=== PATIENT | male | born 1965 | race Caucasian/White ===

== ENCOUNTER 2023-12-17 13:31 | Outpatient (AMB) | payer MEDICAID, SELFPAY ==
--- NOTE | 2023-12-17 13:49 | PD.GSCLVISIT ---
Vital Signs - [facility] 12/17/23 13:53 Height 1.96 m Height Method Stated Weight 113.937 kg Weight Measurement Method Standing Scale BMI 29.7 BP 166/116 H Blood Pressure Source Automatic Cuff Blood Pressure Location Right Upper Arm Position Sitting Respiration 19 Pulse 124 H Pulse Source Monitor Temp 96.1 F L Temp Source Temporal Artery Scan Pulse Oximetry (%) 96 Oxygen Delivery Method Room Air Med/Allergies Allergies & Medications Allergies Penicillins Allergy (Severe, Verified 12/17/23 13:54) Hives Medication Reconciliation cyclobenzaprine 5 mg tablet 5 mg PO TID PRN Pain (Scale Score 4-6) 12/06/23 [History Confirmed 12/17/23] risperidone 3 mg tablet 3 mg PO QDAY 12/06/23 [History Confirmed 12/17/23] simvastatin 80 mg tablet 80 mg PO QDAY 12/06/23 [History Confirmed 12/17/23] venlafaxine 150 mg tablet,extended release 24 hr 150 mg PO QDAY 12/06/23 [History Confirmed 12/17/23] MA Intake Visit Data Collection New Patient or Established: Established Patient (seen at [facility] within 3 years) Seen by Clinical Staff ONLY (RN/MA): No Reason for Visit:: COLONOSCOPY F/U Pain Present Currently: No Materials Management Manager Required: No PCP or OBGYN visit in last 3 months: Yes Hx Now: No Do You Feel Safe at Home: Yes Authorities Contacted: N/A Smoking Status Smoking Status: Current every day smoker Cessation Counseling Provided: ANGLEINA was advised that quitting smoking is the single most important factor to protect the health of themselves and their family. Discussed the benefits of quitting smoking with patient. Encouraged patient to quit smoking and provided Cessation assistance materials and resources. Tobacco Use: Cigarette Years smoked: 2 Are you interested in quitting?: No Would you like additional Smoking Cessation Counseling?: No Immunization / Flu Flu Vaccine in the Last 12 Months: No Flu Vaccine Exclusion Criteria: No Exclusion Criteria Past Medical History Past Medical History NEUROLOGIC: Negative Neurological Disorders or Seizures CARDIAC: Positive Cardiac Disorders and Hypertension; Negative Congestive Heart Failure RESPIRATORY: Positive Asthma; Negative Chronic Obstructive Pulmonary Disease (COPD) GASTROINTESTINAL: Positive Gastrointestinal Disorders (patient states polyp sticking out of my anus. ), Ulcer and Hemorrhoids GENITOURINARY: Negative Genitourinary Disorders or Renal Disease ENDOCRINE: Negative Endocrine Disorders, Diabetes Mellitus Type 1 or Diabetes Mellitus Type 2 HEMATOLOGIC: Negative Blood Disorders PSYCHO/SOCIAL: Positive Depression and Anxiety OTHER HISTORY: Negative Autoimmune Disease, Blood Transfusions, Blood Transfusion Reaction or Anesthesia Reactions Social History SMOKING STATUS: Smoking status: Current every day smoker SECOND HAND EXPOSURE: second hand exposure: No ALCOHOL: Alcohol Intake: Current HOUSING: Housing: House HPI HPI Narrative 58M s/p screening colonoscopy with findings of two <1cm polyp. Pt reports feeling well overall with no pain, no concerns regarding his bowel movements ROS Review of Systems Systems Reviewed: All systems reviewed, normal except as documented Objective/Exam General General Appearance: alert, cooperative and well groomed Resp Respiratory exam: Absent respiratory distress Results Pathology of polyps: tubular adenomas Assessment & Plan Diagnosis / Problem List (1) Encounter to discuss colonoscopy results: Status: Acute Assessment & Plan: 58M s/p screening colonoscopy 12/03 with findings of two tubular adenomas <1cm, diverticulosis and hemorrhoids. I explained that surveillance colonoscopy should be done in 7 years. Pt expressed unederstanding and all questions were answered Office Procedures GNS Level of Care Nursing/Assessment Patient Status: Established Patient Nursing Assessment/Reassesment: Medication Reconciliation, Update PMH in EMR and Vital Signs Coordination of Care: Complex Care and Chronic Disease 1-5, Education Complex Pt/Fam, Consent,records obtained, informed consent and Staff clarify orders Established Patient Charge Established Patient Point Assignment: 90 Established Patient Point Charge: EP Level 3 (80-115) Patient Portal Questionaires Social History Living Situation History Housing: House Tobacco History Smoking Status: Current every day smoker Second Hand Smoke Exposure: No Alcohol History Alcohol Intake: Current Domestic Abuse History Do You Feel Safe at Home: Yes Review of Systems Report any current symptoms Only answer those that you have currently: Past Medical History Past Medical History Have you ever been diagnosed with any of the following: Neurological Problems Seizures: No Cardiology Problems Congestive Heart Failure: No Hypertension: Yes Respiratory Problems Chronic Obstructive Pulmonary Disease (COPD): No Asthma: Yes Stomache/Intestinal Problems Ulcer: Yes Hemorrhoids: Yes Genital/Urinary Problems Renal Disease: No Endocrine Problems Diabetes Mellitus Type 1: No Diabetes Mellitus Type 2: No Psychologic Problems Depression: Yes Anxiety: Yes Other Problems Autoimmune Disease: No Blood Transfusions: No Blood Transfusion Reaction: No Anesthesia Reactions: No
[2023-12-17 13:53] VITALS: BP 166/116; PULSE 124; RESP 19; TEMP 35.6; O2SAT 96; BMI 29.7
== END 2023-12-17 14:15 | disposition home or self-care (01) ==
PROVIDERS: PCP Nurse Practitioner Family; Referring Provider Nurse Practitioner Family; Supervising Provider Surgery; Visit Provider Surgery
DX: Z48.815 Encounter for surgical aftercare following surgery on the digestive system (principal); D12.6 Benign neoplasm of colon, unspecified; K57.90 Diverticulosis of intestine, part unspecified, without perforation or abscess without bleeding; K64.9 Unspecified hemorrhoids
CPT/HCPCS: 99213; G0463

== ENCOUNTER 2024-11-20 14:09 | Inpatient (IN) | payer MEDICAID, SELFPAY ==
[2024-11-20] VITALS (10 sets, daily range): BP systolic 122–205; BP diastolic 92–120; PULSE 86–113; RESP 18–97; TEMP 36.6–36.8; O2SAT 96–100; BMI 28.9
--- NOTE | 2024-11-20 14:16 | XR_ITS ---
Examination: AP chest single view Technique one AP portable upright chest single view Date and time: November 20, 2024 1457 hours INDICATIONS: Shortness of breath today. FINDINGS: Normal heart size Ectatic thoracic aorta. No pneumonia or pulmonary edema. Severe osteopenia with old left-sided rib fractures and advanced osteoarthritis glenohumeral joints IMPRESSION: No active disease
--- NOTE | 2024-11-20 14:16 | EKG_ITS ---
[facility] Test Date: 2024-11-20 Pat Name: ANGELINA TERRELL Department: Room: - Gender: Male Inventory Control Analyst: : 1965 Requested By: Alfredo Acuña Order Number: [id number] Reading MD: Alfredo Acuña Measurements Intervals Challenge Rate: 98 P: 55 WA: 192 QRS: -70 QRSD: 106 T: 70 QT: 354 QTc: 453 Interpretive Statements SINUS RHYTHM LEFT AXIS DEVIATION [QRS AXIS < -30] PATTERN CONSISTENT WITH PULMONARY DISEASE SEPTAL MYOCARDIAL INFARCTION , PROBABLY OLD [40+ ms Q WAVE IN V1/V2] No previous ECG available for comparison /store/S0/[id number].pdf
--- NOTE | 2024-11-20 14:18 | PD.EDADULT ---
ED General RME/HPI General Chief complaint: Altered Mental Status Stated complaint: ALT MENTAL STATUS Time Seen by Provider: 11/20/24 14:16 Arrival date/time: 11/20/24 14:09 RME / HPI RME / HPI narrative: 59-year-old male patient with significant history of chronic alcoholism, schizophrenia, was brought in by EMS for evaluation regarding altered mental status. Patient last well-known time was 3 days ago. According to EMS patient is doing self alcohol detoxification at home, last alcohol intake unknown. No other pertinent information can be extracted at this time since patient only knows his name. Patient lives with his 85-year-old mom Related Data Home Medications ?Medication ?Instructions ?Recorded ?Confirmed cyclobenzaprine 5 mg tablet 5 mg PO TID PRN Pain (Scale Score 12/06/23 12/17/23 Held on 12/06/23. 4-6) Instructions: Resume on 12/07/23. risperidone 3 mg tablet 3 mg PO QDAY 12/06/23 12/17/23 simvastatin 80 mg tablet 80 mg PO QDAY 12/06/23 12/17/23 venlafaxine 150 mg tablet,extended 150 mg PO QDAY 12/06/23 12/17/23 release 24 hr Allergies Allergy/AdvReac Type Severity Reaction Status Date / Time Penicillins Allergy Severe Hives Verified 12/17/23 13:54 Review of Systems Review of Systems Narrative Review of Systems: Review of system reviewed and within normal limits except mentioned in HPI ED Exam Narrative Physical exam: VITAL SIGNS: Reviewed. GENERAL APPEARANCE: Alert and oriented x 1, no acute distress, GCS open 13 HEAD AND FACE: Non-traumatic. ENT: PERRL, pink conjunctivitis, eyelid no trauma, Mucous membrane moist. NECK: Supple, nontender, no nuchal rigidity. CHEST: No tenderness, no crepitus, no paradoxical movement, no retractions. LUNGS: Clear, well ventilated, symmetric, no rales, no wheezing, no ronchi, no stridor, good breath sounds bilaterally. HEART: Regular rate, regular rhythm, no murmur, no gallops. ABDOMEN: Soft, positive bowel sounds, nondistended, no guarding, nontender, no rebound, no masses, RECTAL: Deferred. GENITAL: Deferred. NEUROLOGICAL: Gross motor function intact sensory function intact, Appropriate for age. MUSCULOSKELETAL: low back nontender, full range of motion. EXTREMITIES: Nontender, full range of motion. SKIN: Color pink, dry, no rash, no lacerations, no abrasions, no contusions. LYMPHATICS: Deferred. Course Quality Measures none Orders Category Date Time Status COVID-19 Screening Questionnaire NOW Care 11/20/24 17:40 Active Decision to Admit X1 Care 11/20/24 17:40 Active EKG (ED ONLY) *Do not use* NOW Care 11/20/24 14:[address] head/brain wo con Stat Exams 11/20/24 14:20 Completed EKG (ED Only) Stat Exams 11/20/24 14:16 Draft US liver Stat Exams 11/20/24 17:28 Ordered XR chest 1V Stat Exams 11/20/24 14:16 Completed Alcohol, Blood Medical Stat Lab 11/20/24 14:08 Completed Ammonia Stat Lab 11/20/24 14:08 Completed B-Type Natriuretic Peptide Stat Lab 11/20/24 14:08 Completed Blood Culture (Lab) Stat Lab 11/20/24 14:08 Received C-Reactive Protein Stat Lab 11/20/24 14:08 Completed CBC Stat Lab 11/20/24 14:08 Completed Comprehensive Metabolic Panel Stat Lab 11/20/24 14:08 Completed Drug Screen,Urine Stat Lab 11/20/24 15:00 Completed Lactate (Lactic Acid) Stat Lab 11/20/24 14:08 Results Lactate (Lactic Acid) Stat Lab 11/20/24 17:13 Ordered Partial Thromboplastin Time Stat Lab 11/20/24 14:08 Completed Procalcitonin Stat Lab 11/20/24 14:08 Completed Prothrombin Time with INR Stat Lab 11/20/24 14:08 Completed Troponin I Stat Lab 11/20/24 14:08 Completed UA, C/S IF [Urinalysis, C/S if Indicated] Stat Lab 11/20/24 15:00 Completed VBG [Venous Blood Gas] Stat Lab 11/20/24 14:08 Completed Diazepam [Valium] Med 11/20/24 14:17 Discontinued 5 mg PO X1 ONE Lactulose Syrup [Enulose Syrup] Med 11/20/24 17:12 Discontinued 20 gm PO X1 ONE Ringers Lactated 1000 ml [Lactated Ringers] 1,000 ml Med 11/20/24 14:18 Discontinued IV 999 mls/hr Ringers Lactated 1000 ml [Lactated Ringers] 1,000 ml Med 11/20/24 15:24 Discontinued IV 999 mls/hr hydrALAZINE INJ [Apresoline Inj] Med 11/20/24 17:18 Discontinued 20 mg IVP X1 ONE Vital Signs Vital signs: Vital Signs Respiratory Rate 18 11/20/24 15:01 Blood Pressure 205/119 H 11/20/24 15:01 Pulse Oximetry (%) 96 11/20/24 15:01 Oxygen Delivery Method Room Air 11/20/24 15:01 Discharge Plan Plan Patient Disposition: Admit Acute Care w/in Hospital Prescriptions/Referrals Prescriptions/Med Rec: No Action simvastatin 80 mg tablet 80 mg PO QDAY Patient Comments: TAKE 1 TABLET BY MOUTH EVERY DAY AT NIGHT risperidone 3 mg tablet 3 mg PO QDAY Patient Comments: TAKE 1 TABLET DAILY cyclobenzaprine 5 mg tablet 5 mg PO TID PRN (Reason: Pain (Scale Score 4-6)) Patient Comments: 1 TABLET 3 TIMES A DAY NEEDED FOR PAIN venlafaxine 150 mg tablet extended release 24hr 150 mg PO QDAY Patient Comments: TAKE 1 TABLET BY MOUTH EVERY DAY Referrals: No Primary/Family,Physician [Primary Care Provider] - In 1 week Problem List Clinical Impression: Altered mental status, Alcoholism, chronic, Hyperammonemia Patient/Caregiver Discharge Instructions Print Language: Wallisian Stand Alone Forms: Gisele Award Info., Patient Portal Info Letter MDM Narrative MDM hospital course (for use when minimal MDM required): 59-year-old male patient with significant history of chronic alcoholism, schizophrenia, was brought in by EMS for evaluation regarding altered mental status. Patient last well-known time was 3 days ago. According to EMS patient is doing self alcohol detoxification at home, last alcohol intake unknown. No other pertinent information can be extracted at this time since patient only knows his name. Patient ammonia level was noted to be 72, lactic acid 4.7 CBC no leukocytosis urinalysis no UTI AST of 45 total bili is normal ALT alkaline phos normal. CT scan of the head came back unremarkable. Chest x-ray came back unremarkable. EKG showed normal sinus rhythm, ventricular to 97 bpm, no ST segment elevation depression noted. Patient received 2 L of IV LR, hydralazine IV, and lactulose. Patient was also given Valium 5 mg p.o. Plan of care discussed with the family who wanted me to help the patient regarding alcohol problem. Discussed the case with hospitalist, who admitted the patient. Medication Administration(s) Medication Administration History Discontinued Medications Diazepam (Diazepam 5 Mg Tablet) 5 mg PO X1 ONE Stop: 11/20/24 14:18 Last Admin: 11/20/24 14:42 Dose: 5 mg Documented By: VL Hydralazine HCl (Hydralazine Inj 20 Mg/Ml Vial) 20 mg IVP X1 ONE Stop: 11/20/24 17:19 Last Admin: 11/20/24 17:23 Dose: 20 mg Documented By: BY Lactated Ringer's (Lactated Ringers) 1,000 mls @ 999 mls/hr IV .Q1H1M ONE Stop: 11/20/24 15:18 Last Admin: 11/20/24 16:17 Dose: 999 mls/hr Documented By: BY Lactated Ringer's (Lactated Ringers) 1,000 mls @ 999 mls/hr IV .Q1H1M ONE Stop: 11/20/24 16:24 Last Admin: 11/20/24 16:30 Dose: 999 mls/hr Documented By: BY Lactulose (Lactulose Syrup 20 Gm/30 Ml Udc) 20 gm PO X1 ONE; Protocol Stop: 11/20/24 17:13 Last Admin: 11/20/24 17:23 Dose: 20 gm Documented By: BY Diagnosis Differential Diagnosis ED Complaint MDM: Altered mental status, intracranial bleed, alcoholic encephalopathy, alcoho Diagnoses ruled out and/or further discussions: Altered mental status, elevated ammonia level, chronic alcoholism
--- NOTE | 2024-11-20 14:20 | XR_ITS ---
Examination: CT brain head without contrast. 2-D sagittal coronal reconstructions Date and time of exam:November 20, 2024, 1555 hours INDICATIONS: Altered mental status today CTDI: vol (mGy):54.5 DLP: (mGycm):1 T6 Technique: Multiple CT axial sections of the brain have been obtained, 5 mm slice thickness. Contrast has not been administered. 2-D sagittal, coronal reconstructions have been obtained Low dose protocols were performed. One or more of the following dose reduction techniques were used; automated exposure control, adjustment of the mA and/or KV according to patient size, use of iterative reconstruction technique. Findings: No significant ventricular enlargement. Intra-axial or extra-axial hemorrhage density is not seen. No mass effect or midline shift Basal cisterns are not remarkable. Fourth ventricle is midline. Cranial vault intact. Impression: Negative for acute hemorrhage, mass effect or midline shift Advise clinical correlation and follow-up accordingly
[2024-11-20] MEDS: DIAZEPAM 5 MG TABLET PO (14:42)
[2024-11-20 15:14] LABS: Base Excess, Venous -3 (-3-3); O2 Saturation, Venous 88 % (96-97); PCO2, Venous 30 mmHg (36-56); PO2, Venous 55 mmHg (15-58); pH, Venous 7.43 (7.33-7.66)
[2024-11-20 15:15] LABS: Lactate (Lactic Acid) 4.7 mMol/L (0.4-2.0)
[2024-11-20 15:17] LABS: Basophils # (Auto) 0.0 Thou/mm3 (0.0-0.2); Basophils % (Auto) 1 % (0-2.5); Eosinophils # (Auto) 0.0 Thou/mm3 (0.0-0.5); Eosinophils % (Auto) 0 % (0-10); Hematocrit 38.5 % (41.0-53.0); Hemoglobin 14.2 g/dL (13.5-16.0); Immature Granulocytes Auto 0.01 Thou/mm3 (0.00-0.00); Lymphocytes # (Auto) 1.3 Thou/mm3 (1.0-4.8); Lymphocytes % (Auto) 23 % (10-50); Mean Corpuscular HGB Conc 36.9 g/dl (31.0-37.0); Mean Corpuscular Hemoglobin 33.2 pg (25.0-35.0); Mean Corpuscular Volume 90 fL (80-100); Monocytes # (Auto) 0.6 Thou/mm3 (0.0-0.8); Monocytes % (Auto) 10 % (0-12); Neutrophils # (Auto) 3.7 Thou/mm3 (1.8-7.7); Neutrophils % (Auto) 66 % (37-80); Nucleated Red Blood Cell # 0.00 Thou/mm3 (0.00-0.00); Nucleated Red Blood Cell % 0 /100 WBC (0); Platelet Count 196 Thou/mm3 (140-440); RDW Standard Deviation 40.5 fL (35.1-43.9); Red Blood Count 4.28 Miln/mm3 (4.50-5.90); White Blood Count 5.6 Thou/mm3 (3.8-10.6)
[2024-11-20 15:34] LABS: Collection Type, Urine Clean Catch; Squamous Epithelial Cell,Urine 0 /hpf (0-5); WBC,Urine 0 /hpf (0-5)
[2024-11-20 15:38] LABS: Ammonia 72 uMol/L (11-32); B-Type Natriuretic Peptide 28 pg/mL (0-100); INR 1.0 (0.9-1.3); Partial Thromboplastin Time 27.1 Seconds (22.0-36.0); Prothrombin Time 10.9 Seconds (9.0-12.2)
[2024-11-20 15:41] LABS: Bilirubin,Urine Negative (Negative); Blood,Urine Negative (Negative); Clarity,Urine Clear (Clear/Hazy); Color,Urine Colorless (Lt Yel-Yel); Culture Indicated,Urine Not Indicated; Glucose, Urine Negative (Negative); Ketones,Urine Negative (Negative); Leukocyte Esterase,Urine Negative (Negative); Nitrite,Urine Negative (Negative); PH,Urine 6.5 (5.0-7.0); Protein,Urine Negative (Neg - Trace); RBC,Urine < 1 /hpf (0-3); Specific Gravity,Urine 1.005 (1.001-1.035); Urobilinogen,Urine Negative mg/dL (0.0-1.0)
[2024-11-20 15:47] LABS: Amphetamine/Methamp Scrn,U Negative (Negative); Barbiturate Screen,Urine Negative (Negative); Benzodiazepines Screen,Urine Negative (Negative); Benzoylecgonine Screen, Ur Negative (Negative); Fentanyl Screen,Urine Negative (Negative); Opiate Screen,Urine Negative (Negative); THC Screen,Urine Negative (Negative)
[2024-11-20 15:52] LABS: Alanine Aminotransferase 38 U/L (10-49); Albumin, Serum 4.4 gm/dL (3.5-5.0); Albumin/Globulin Ratio 1.9 (1.2-2.2); Alcohol, Blood Medical 119.3 mg/dL (0-10.0); Alkaline Phosphatase 67 U/L (46-116); Anion Gap 15 (7-16); Aspartate Amino Transferase 45 U/L (0-34); BUN/Creatinine Ratio 7 Ratio (12-20); Bilirubin,Total 0.6 mg/dL (0.3-1.2); Blood Urea Nitrogen < 5 mg/dL (9-23); C-Reactive Protein < 0.5 mg/dL (0.0-0.9); Calcium 9.3 mg/dL (8.3-10.6); Calcium (Corrected) 9.3 mg/dL (8.5-10.1); Carbon Dioxide 19.7 mMol/L (20.0-31.0); Chloride 103 mMol/L (98-107); Creatinine (Component) 0.7 mg/dL (0.6-1.3); Estimated Creatinine Clearance 159.0 mL/min (>60); Globulin 2.3 gm/dL (2.3-3.5); Glucose 169 mg/dL (74-106); Osmolality,Calculated 276 (275-295); Potassium 3.6 mMol/L (3.4-5.1); Procalcitonin 0.05 ng/ml (0.0-0.49); Sodium 138 mMol/L (136-145); Total Protein 6.7 gm/dL (5.7-8.2); Troponin I < 0.020 ng/mL (0.0-0.045); eGFR > 60 See Note
[2024-11-20] MEDS: RINGERS LACTATED 1000 ML 1,000 ML 999 ML IV ×3 (16:17→20:43)
[2024-11-20] MEDS: hydrALAZINE INJ 20 MG/ML VIAL IVP (17:23)
[2024-11-20] MEDS: LACTULOSE SYRUP 20 GM/30 ML UDC PO (17:23)
--- NOTE | 2024-11-20 17:28 | XR_ITS ---
Examination: Abdomen sonogram, Limited Date and time of exam: November 20, 2024, 1839 hrs. Indications: Elevated ammonia levels on laboratory examination today, assess for primary hepatocellular disease Technique: Real-time sellers scale transabdominal sonographic images of the upper abdomen obtained. Findings: Negative for gallstones Gallbladder wall 0.38 cm no edema Common bile duct 0.4 cm Pancreatic head 2.2 cm Liver 19.2 cm fatty infiltration, liver contour minimally irregular no focal liver lesions Normal hepatopedal portal venous flow Patent IVC Impression: Negative for cholelithiasis Moderate hepatomegaly, suspicious for primary hepatocellular disease, consider CT scan abdomen pelvis post intravenous contrast follow-up
[2024-11-20 18:11] LABS: Reflex Lactate? Y
--- NOTE | 2024-11-20 18:36 | ESHP_ITS ---
<Statement entered by Rudy Hart MD - 11/20/24 20:30> I saw and examined patient personally and supervised PGY 1 resident, Dr. Liu with formulating a management plan. I agree with the documentation with the exceptions as listed below. Mr Valle is a 59 yo with a h/o alcohol use disorder, schizophrenia on risperidone, hemmorhoids, and possibly hyperlipidemia who was BIBA on 11/20 for confusion and lethargy. Patient was admitted for alcohol withdrawal. Problem list: 1. Acute metabolic encephalopathy secondary to alcohol withdrawal 2. Hyperammonia 3. ? Alcoholic liver disease 4. Hypertensive urgency 5. NAGMA secondary to lactic acidosis 6. History of schizophrenia According to patient's sister at bedside he has a history of chronic alcohol use since his early 20s. She endorsed that he drinks at least 20 beers a day. He also has.'s when he tries to detox and will stop drinking alcohol abruptly and go through withdrawal symptoms at home which include agitation and diarrhea. He never stays sober for long and starts back drinking shortly after. His sister denied any previous hospitalization for alcohol withdrawal and alcohol withdrawal seizures. Prior to this admission he was in the process of an alcohol cleanse but became extremely agitated and his sister called EMS. Upon our assessment of the patient he was extremely agitated, tremulous and had difficulty with word finding. Also had poor memory and eye contact. He was only oriented to self. At this point in time we will prophylactically treat patient with high dose Thiamine 500 mg IV 3 times daily and placed on CIWA protocol. Seizure precautions are also in place. Patient's lactic acidosis most likely due to acute ethanol intoxication. Salicyclate, ethylene glycol and methanol abuse are less likely as patient no history of ingestion. Initial lactate level was 4.7 continue to trend. Patient received 2L IVF bolus in the ED will give another 1L LR IVF bolus along with starting maintenance LR IVF at 100 cc/h. For patient's possible alcoholic cirrhosis, will start on lactulose for hyperammonemia. Also will hold on his psychiatric medication for now until he passes swallow screen and acute encephalopathy begins to resolve. Plan of care discussed with Attending Dr. Kendrick Hart MD PGY 2 Disclaimer: This note was dictated by speech recognition. Minor errors in senior accounting clerk may be present due to voice recognition software. Documentation for date of: 10/02/25 HPI History of Present Illness Chief complaint: Altered Mental Status History of present illness: Mr Valle is a 59 yom with a h/o alcohol use disorder, schizophrenia on risperidone, hemmorhoids, and possibly hyperlipidemia who was BIBA on 11/20 for confusion and lethargy. History was gathered in part by the patient and his sister at bedside. He lives at home with his mother, and she noted that he was becoming more agitated over the past 3 days until today when he became lethargic, confused, and unable to find words or form sentences. It was at this point that his sister saw him and they called 911. He had apparently become incontinent of stool and had diarrhea today. He has a history of detoxing on his own but usually will relapse and start drinking again. He has never experienced a withdrawal seizure in the past. He typically drinks 20 beers per day. He denies vision changes, nausea, vomiting, chest pain, abdominal pain or continued diarrhea. PMHx: As above, additionally has had dental implants. Meds: See med rec once done, reports risperidone and a statin. Allergies: penicillin PSHx: Unspecified orthopedic surgery on the left tibia. Social Hx: Lives at home with mother, unemployed due to schizophrenia, does a lot of handywork as a hobby. Drinks 20 beers a day, uses chewing tobacco and cigars, no recreational drugs. ED Course: -Patient presents to the ED with BP 205/119, HR 89, Pulse ox 96% on RA. -Patient ammonia level was noted to be 72, lactic acid 4.7 CBC no leukocytosis urinalysis no UTI AST of 45 total bili is normal ALT alkaline phos normal. CT scan of the head came back unremarkable. Chest x-ray came back unremarkable. EKG showed normal sinus rhythm, ventricular to 97 bpm, no ST segment elevation depression noted. -Patient received 2 L of IV LR, hydralazine IV, and lactulose. Patient was also given Valium 5 mg p.o. -Hospitalist team A was consulted, admitted the patient for acute encephalopathy and acute alcohol withdrawal. Exam Vital Signs Temp Pulse Resp BP Pulse Ox O2 Del Method 97.9 F 113 H 20 122/92 H 100 Room Air 11/20/24 18:13 11/20/24 18:13 11/20/24 18:13 11/20/24 18:13 11/20/24 18:13 11/20/24 18:13 Narrative Exam General: Middle aged patient, fidgity, rocking back and forth, HEENT: Mucosa dry. No oropharyngeal lesions, tongue fasciculations noted. Pupils are equal and reactive to light bilaterally Cardiovascular: Normal S1 and S2. Regular rate and rhythm. No murmur appreciated Respiratory: Clear to auscultation bilaterally without wheezes or crackles. Abdomen: Soft, nontender, not distended, Skin: Dry, no rashes or bruising Musculoskeletal: No gross injuries. Able to move all 4 extremities. Non edematous lower extremities. Neuro: Alert and oriented x3. Tremulous hands and fingers. Difficulty with word finding. Results: Labs 11/21/24 05:10 11/21/24 05:10 Labs: Short CBC 11/20/24 Range/Units 14:08 WBC 5.6 (3.8-10.6) Thou/mm3 Hgb 14.2 (13.5-16.0) g/dL Hct 38.5 L (41.0-53.0) % Plt Count 196 (140-440) Thou/mm3 BMP 11/20/24 14:08 Sodium 138 Potassium 3.6 Chloride 103 Carbon Dioxide 19.7 L BUN < 5 L Creatinine 0.7 Glucose 169 H Calcium 9.3 Cardiac Enzymes 11/20/24 Range/Units 14:08 Troponin I < 0.020 (0.0-0.045) ng/mL Liver Function 11/20/24 Range/Units 14:08 Total Bilirubin 0.6 (0.3-1.2) mg/dL AST 45 H (0-34) U/L ALT 38 (10-49) U/L Alkaline Phosphatase 67 (46-116) U/L Albumin 4.4 (3.5-5.0) gm/dL Urine 11/20/24 Range/Units 15:00 Urine Color Colorless A (Lt Yel-Yel) Urine Clarity Clear (Clear/Hazy) Urine pH 6.5 (5.0-7.0) Ur Specific [place] 1.005 (1.001-1.035) Urine Protein Negative (Neg - Trace) Urine Glucose (UA) Negative (Negative) ABG Interpretation ABG results: 11/20/24 14:08 VBG pH 7.43 VBG pCO2 30 L VBG pO2 55 VBG Base Excess -3 Quality Measures Quality Measures none Medications Home Medications and Allergies Home Medications ?Medication ?Instructions ?Recorded ?Confirmed ?Type cyclobenzaprine 5 mg tablet 5 mg PO TID PRN Pain (Scal e Score 12/06/23 12/17/23 History Held on 12/06/23. 4-6) Instructions: Resume on 12/07/23. risperidone 3 mg tablet 3 mg PO QDAY 12/06/23 History simvastatin 80 mg tablet 80 mg PO QDAY 12/06/2312/16 History venlafaxine 150 mg tablet,extended 150 mg PO QDAY 11/1912/17/23 History release 24 hr Allergies Allergy/AdvReac Type Severity Reaction Status Date / Time Penicillins Allergy Severe Hives Verified 12/17/23 13:54 Visit Medications Acetaminophen (Acetaminophen 325 Mg Tablet) 650 mg PO Q6H PRN PRN Reason: Fever >100.4 or pain 1-3 Stop: 12/20/24 18:19 Albuterol/Ipratropium (Albuterol/Ipratropium (Duoneb) Rt Margaret 3 Ml Nebu) 3 ml INH Q2HR PRN PRN Reason: SHORTNESS OF BREATH OR WHEEZE Stop: 12/20/24 18:19 Diazepam (Diazepam Inj 5 Mg/Ml Vial 2 Ml) 2.5 mg IVP Q2HR PRN PRN Reason: CIWA SCORE 8-13 Stop: 11/25/24 18:28 Diazepam (Diazepam Inj 5 Mg/Ml Vial 2 Ml) 5 mg IVP Q2HR PRN PRN Reason: CIWA SCORE 14-19 Stop: 11/25/24 18:28 Diazepam (Diazepam Inj 5 Mg/Ml Vial 2 Ml) 10 mg IVP Q2HR PRN PRN Reason: CIWA SCORE 20-25 Stop: 11/25/24 18:28 Enoxaparin Sodium (Enoxaparin Sod Inj 40 Mg/0.4 Ml Syringe) 40 mg SC HS LUIS Stop: 12/04/24 20:59 Lactated Ringer's (Lactated Ringers) 1,000 mls @ 100 mls/hr IV .Q10H ONE Stop: 11/21/24 04:24 Labetalol HCl (Labetalol Inj 5 Mg/Ml Vial 20 Ml) 10 mg IVP X1 PRN PRN Reason: SBP > 190 Stop: 12/20/24 18:33 Lactulose (Lactulose Syrup 20 Gm/30 Ml Udc) 20 gm PO BID LUIS; Protocol Stop: 12/21/24 08:59 Lorazepam (Lorazepam 0.5 Mg Tablet) 0.5 mg PO Q4HR PRN PRN Reason: CIWA Score 2-6 Stop: 11/25/24 18:28 Lorazepam (Lorazepam 0.5 Mg Tablet) 1 mg PO Q4HR PRN PRN Reason: CIWA SCORE 7-11 Stop: 11/25/24 18:28 Lorazepam (Lorazepam 0.5 Mg Tablet) 2 mg PO Q4HR PRN PRN Reason: CIWA SCORE 12-15 Stop: 11/25/24 18:28 Ondansetron HCl (Ondansetron Inj 2 Mg/Ml Inj 2 Ml) 4 mg IVP Q6H PRN; Protocol PRN Reason: NAUSEA OR VOMITING Stop: 12/20/24 18:24 Pantoprazole Sodium (Pantoprazole Inj 40 Mg Vial) 40 mg IVP QDAY [facility] Stop: 12/20/24 18:29 Thiamine HCl (Thiamine Inj 100 Mg/Ml Vial 2 Ml) 500 mg IVP TID [facility] Stop: 11/22/24 18:34 Discontinued Medications Diazepam (Diazepam 5 Mg Tablet) 5 mg PO X1 ONE Stop: 11/20/24 14:18 Last Admin: 11/20/24 14:42 Dose: 5 mg Hydralazine HCl (Hydralazine Inj 20 Mg/Ml Vial) 20 mg IVP X1 ONE Stop: 11/20/24 17:19 Last Admin: 11/20/24 17:23 Dose: 20 mg Lactated Ringer's (Lactated Ringers) 1,000 mls @ 999 mls/hr IV .Q1H1M ONE Stop: 11/20/24 15:18 Last Infusion: 11/20/24 17:30 Dose: Infused Lactated Ringer's (Lactated Ringers) 1,000 mls @ 999 mls/hr IV .Q1H1M ONE Stop: 11/20/24 16:24 Last Admin: 11/20/24 16:30 Dose: 999 mls/hr Lactulose (Lactulose Syrup 20 Gm/30 Ml Udc) 20 gm PO X1 ONE; Protocol Stop: 11/20/24 17:13 Last Admin: 11/20/24 17:23 Dose: 20 gm Assessment & Plan Plan This is a 59 yom with a h/o Alcohol use disorder, schizophrenia on risperidone, internal/external, HLD, who was BIBA on 11/20 for confusion and lethargy, ultimately admitted for acute encephalopathy and acute alcohol withdrawal. #Acute Encephalopathy / #Acute Alcohol Withdrawl #Hyperammonemia Patient typically drinks 20 beers daily, unsure of last drink, has had multiple attempts at detox but will typically drink again after a detox attempt. Unsure of when last drink was. Has never had a withdrawal seizure in the past. Tremulous on examination, but AxO x3. CIWA 12 in the ED, given 2L LR, and 5mg diazepam. Ammonia was 72, not significantly high to cause a pure hepatic encephalopathy. Transaminases unremarkable except for slight elevation of AST. -Admit med tele -CIWA protocol -Thiamine 500 mg today and tomorrow -Lactulose 20 gm BID -seizure precautions -Bedside swallow screen. -Pending Abdominal US #Hypertensive Urgency Likely secondary to above. BP 205/119 initially in the ED. Given hydralazine 20 mg, BP improved to 120/92. Anticipate further improvement with treatment of the alcohol withdrawal. - Labetolol prn for sbp >190 #Lactic Acidosis Likely secondary to the acute alcohol ingestion vs hypovolemia secondary to dehydration. -Trend lactate. - mIVF. #Schizophrenia Stability unclear. Likely restart risperidone once med rec completed. Health Maintenance: DVT prophylaxis: enoxaparin Diet: NPO Callahan: No Lines: PIV CODE STATUS: Full code Disposition: Pending detox and improved lactic acidosis. Patient's plan and care discussed with my attending, Dr. Marks and my senior Dr Hart. Vinod Liu, DO PGY-1 ([facility] Resident) Attending Provider Attestation/Addendum I have examined the patient, reviewed labs and imaging findings, discussed the case with the resident(s), and reviewed entered orders. I agree with the plan of care as outlined in this note, with these additional summaries/recommendations: After examination of the patient and review of the clinical data, I feel that this patient needs admission to the hospital for further treatment and evaluation. Patient is a 59-year-old male with a medical history of alcohol use, hyperlipidemia, depression, and schizophrenia presents to [facility] emergency department on 11/20/2024 with chief complaint of altered mental status. Patient seen at bedside. He is only alert to self at this time. Per EMS patient has been doing self alcohol detoxification at home. Unknown when last drink was. On admission ethyl alcohol level 119.3. Patient diagnosed with acute encephalopathy. Most likely etiology is alcohol withdrawal versus intoxication vs versus hepatic encephalopathy versus other metabolic etiologies. No evidence of infection at this time. CT head without contrast on admission relatively within normal limits. Patient will be admitted to the hospital. Start CIWA protocol. Start lactulose for elevated ammonia level. Ordered liver ultrasound to rule out any cirrhotic changes. Lactic acidosis present most likely type B from liver injury versus less likely type A. Start IV maintenance fluids and trend lactic acid. Patient was also found to have significantly elevated blood pressure with initial reading 205/119. Start antihypertensives and we will adjust as needed. Please see residents note for additional details and management. Dr. Kendrick MD
[2024-11-20 18:37] LABS: Lactic Acid, 3 HR 5.3 mMol/L (0.4-2.0)
[2024-11-20] MEDS: RINGERS LACTATED 1000 ML 1,000 ML 100 ML IV (19:02)
[2024-11-20] MEDS: MIDAZOLAM INJ 1 MG/ML VIAL 2 ML 2 MG IVP (19:04)
[2024-11-20] MEDS: THIAMINE INJ 500 MG in SODIUM CHLORIDE 0.9% 50 ML 110 MG IV (19:45)
[2024-11-20] MEDS: DIAZEPAM INJ 5 MG/ML VIAL 2 ML 10 MG IVP ×2 (19:47→21:00)
[2024-11-20 20:57] LABS: Lactate (Lactic Acid) 4.7 mMol/L (0.4-2.0)
[2024-11-20] MEDS: ENOXAPARIN SOD INJ 40 MG/0.4 ML SYRINGE SC (21:00)
[2024-11-20 23:42] LABS: Reflex Lactate? Y
[2024-11-21] VITALS (9 sets, daily range): BP systolic 129–177; BP diastolic 91–108; PULSE 64–92; RESP 14–22; TEMP 36.1–36.9; O2SAT 96–99; BMI 28.7
[2024-11-21] MEDS: THIAMINE INJ 500 MG in SODIUM CHLORIDE 0.9% 50 ML 110 MG IV ×3 (05:35→21:20)
[2024-11-21 05:59] LABS: Basophils # (Auto) 0.1 Thou/mm3 (0.0-0.2); Basophils % (Auto) 1 % (0-2.5); Eosinophils # (Auto) 0.1 Thou/mm3 (0.0-0.5); Eosinophils % (Auto) 1 % (0-10); Hematocrit 34.2 % (41.0-53.0); Hemoglobin 12.4 g/dL (13.5-16.0); Immature Granulocytes Auto 0.02 Thou/mm3 (0.00-0.00); Lymphocytes # (Auto) 2.0 Thou/mm3 (1.0-4.8); Lymphocytes % (Auto) 30 % (10-50); Mean Corpuscular HGB Conc 36.3 g/dl (31.0-37.0); Mean Corpuscular Hemoglobin 33.6 pg (25.0-35.0); Mean Corpuscular Volume 93 fL (80-100); Monocytes # (Auto) 0.7 Thou/mm3 (0.0-0.8); Monocytes % (Auto) 11 % (0-12); Neutrophils # (Auto) 3.7 Thou/mm3 (1.8-7.7); Neutrophils % (Auto) 57 % (37-80); Nucleated Red Blood Cell # 0.00 Thou/mm3 (0.00-0.00); Nucleated Red Blood Cell % 0 /100 WBC (0); Platelet Count 172 Thou/mm3 (140-440); RDW Standard Deviation 43.0 fL (35.1-43.9); Red Blood Count 3.69 Miln/mm3 (4.50-5.90); White Blood Count 6.6 Thou/mm3 (3.8-10.6)
[2024-11-21 06:12] LABS: Glucose Estimated Average 105 mg/dL (80-131); Hemoglobin A1C 5.3 % Hgb (4.8-6.0)
[2024-11-21 06:21] LABS: Alanine Aminotransferase 28 U/L (10-49); Albumin, Serum 3.8 gm/dL (3.5-5.0); Albumin/Globulin Ratio 2.0 (1.2-2.2); Alkaline Phosphatase 57 U/L (46-116); Anion Gap 13 (7-16); Aspartate Amino Transferase 32 U/L (0-34); BUN/Creatinine Ratio 8 Ratio (12-20); Bilirubin,Total 1.2 mg/dL (0.3-1.2); Blood Urea Nitrogen < 5 mg/dL (9-23); Calcium 9.1 mg/dL (8.3-10.6); Calcium (Corrected) 9.3 mg/dL (8.5-10.1); Carbon Dioxide 21.4 mMol/L (20.0-31.0); Cardiac Risk Estimate 3.2 RATIO (4.0-6.7); Chloride 105 mMol/L (98-107); Cholesterol 116 mg/dL (132-200); Creatinine (Component) 0.6 mg/dL (0.6-1.3); Estimated Creatinine Clearance 184.9 mL/min (>60); Globulin 1.9 gm/dL (2.3-3.5); Glucose 116 mg/dL (74-106); HDL Cholesterol 36 mg/dL (40-60); Magnesium 1.9 mg/dL (1.6-2.6); Osmolality,Calculated 275 (275-295); Phosphorous 3.7 mg/dL (2.4-5.1); Potassium 3.3 mMol/L (3.4-5.1); Sodium 139 mMol/L (136-145); Thyroid Stimulating Hormone 3.69 uIU/mL (0.55-4.78); Total Protein 5.7 gm/dL (5.7-8.2); Triglycerides 484 mg/dL (30-150); eGFR > 60 See Note
[2024-11-21] MEDS: LACTULOSE SYRUP 20 GM/30 ML UDC PO (08:32)
[2024-11-21] MEDS: POTASSIUM CHL 10 mEq IVPB 10 MEQ/100 ML BAG 100 MEQ IV ×4 (08:33→11:40)
--- NOTE | 2024-11-21 10:09 | PC.SS ---
Patient Rodolfo Valle is a 59 Year old male admitted for Altered mental Status. SS met with patient at bedside to discuss discharge plan and verify demographic information. Patient reports he lives at home with his mother, Donya Valle who he reports is his surrogate decision maker, . Patient reports he does not utilize any source of DME to assist with ambulation. Patient is independent with all ADLs. Choice of pharmacy is [facility] PCP is Young Torres. Patient also follows up with [facility]. At time of discharge patient will discharge home, will provide transportation Discharge Plan:Home Next of kin:, Magalis Barber
--- NOTE | 2024-11-21 10:11 | PC.SS ---
Patient Rodolfo Valle is a 59 Year old male admitted for Altered mental Status. SS met with patient at bedside to discuss discharge plan and verify demographic information. Patient reports he lives at home with his mother, Donya Valle who he reports is his surrogate decision maker, . Patient reports he does not utilize any source of DME to assist with ambulation. Patient is independent with all ADLs. Choice of pharmacy is [facility]. PCP is Young Torres. At time of discharge patient will discharge home, will provide transportation Discharge Plan:Home Next of kin:, Donya Valle
[2024-11-21 10:35] LABS: Lactate (Lactic Acid) 2.6 mMol/L (0.4-2.0)
[2024-11-21] MEDS: NICOTINE PATCH 14 MG/24 HR PATCH.TD24 TOP (10:40)
--- NOTE | 2024-11-21 10:49 | PC.SS ---
SS follow up note: BP being monitored. Patient will discharge home when medically cleared.
--- NOTE | 2024-11-21 11:44 | ESPR_ITS ---
<Statement entered by Rudy Hart MD - 11/21/24 19:04> I saw and examined patient personally and supervised PGY 1 resident, Dr. Liu with formulating a management plan. I agree with the documentation with the exceptions as listed below. Problem list: 1. Acute metabolic encephalopathy secondary to alcohol withdrawal 2. Hyperammonia 3. Alcoholic liver disease 4. Hypertensive urgency 5. NAGMA secondary to lactic acidosis - resolving 6. History of schizophrenia 7. Hypokalemia 8. Hyperlipidemia 9. Hypertriglyceridemia Overnight patient's CIWA score was in the 20s and he received diazepam 10 mg IV x 1 after which he improved. This morning his CIWA was 1. Patient currently alert and oriented x [address]. With regards to patient's alcohol dependence, he admitted to drinking 20?30 beers per day and has frequently attempted in the past to quit on his own to no avail. Social workers providing him with information about quitting. Liver ultrasound showed changes consistent with alcoholic liver disease, but no signs of cirrhosis as yet. Lipid panel was also significant for triglycerides 484, cholesterol 116 and LDL unable to be calculated. Patient was started on atorvastatin 80 mg p.o. at bedtime. Etiology likely secondary to his risperidone. For patient's schizophrenia, currently awaiting his medication reconciliation. His mother said she will bring his medication. Patient was repleted KCl 40 meq IV x 1 for K 3.3. We also obtained PT eval for patient of possible SNF placement as he lives alone with his 85-year-old mother who finds it difficult to take care of him especially in the setting of his chronic alcohol dependence. If patient's CIWA score remains low and adequately controlled with low dose benzodiazepenes, anticipate discharge within 24 hours. Plan of care discussed with Attending Dr. Oneil Hart MD PGY 2 Disclaimer: This note was dictated by speech recognition. Minor errors in camp head counselor may be present due to voice recognition software. . Documentation for date of: 11/21/24 Subjective Subjective Interval history: Mr Valle is a 59 yom with a h/o alcohol use disorder, schizophrenia on risperidone, hemmorhoids, and possibly hyperlipidemia who was BIBA on 11/20/2024 for confusion and lethargy, subsequently admitted for acute alcohol withdrawal. History was gathered in part by the patient and his sister at bedside. He lives at home with his mother, and she noted that he was becoming more agitated over the past 3 days until today when he became lethargic, confused, and unable to find words or form sentences. It was at this point that his sister saw him and they called 911. He had apparently become incontinent of stool and had diarrhea today. He has a history of detoxing on his own but usually will relapse and start drinking again. He has never experienced a withdrawal seizure in the past. He typically drinks 20 beers per day. He denies vision changes, nausea, vomiting, chest pain, abdominal pain or continued diarrhea. 11/21: Patient examined at beside. CIWA overnight peaked at 26. Given diazepam 10mg, Lorazepam 1 mg then 0.5 mg during the duration of the battery inspector. Patient mentating well today, no concerns today except for wondering if he can use his chewing tobacco today. Appears much less tremulous today but still a little impulsive. Potassium repleted today. He lives at home with his elderly mother, PT evaluation was ordered to see if he would benefit from facility placement in lieu of his chronic alcohol use. Exam Vital Signs Temp Pulse Resp BP Pulse Ox O2 Del Method 96.9 F 92 18 156/99 H 96 Room Air 11/21/24 08:00 11/21/24 08:00 11/21/24 08:00 11/21/24 09:30 11/21/24 08:00 11/21/24 08:00 Narrative Exam General: Middle aged patient, much less fidgity today. Calm. HEENT: Mucosa dry. No oropharyngeal lesions, tongue fasciculations improved. Pupils are equal and reactive to light bilaterally Cardiovascular: Normal S1 and S2. Regular rate and rhythm. No murmur appreciated Respiratory: Clear to auscultation bilaterally without wheezes or crackles. Abdomen: Soft, nontender, not distended, Skin: Dry, no rashes or bruising Musculoskeletal: No gross injuries. Able to move all 4 extremities. Non edematous lower extremities. Neuro: Alert and oriented x3. Fingers are no longer tremulous. Psych: Somewhat impulsive, wanting the get out of bed with the IV still in place. Somewhat inpatient. Objective Labs 11/21/24 05:10 11/21/24 05:10 Labs: Laboratory Results - last 24 hr 11/20/24 11/20/24 11/20/24 14:08 15:00 18:30 WBC 5.6 RBC 4.28 L Hgb 14.2 Hct 38.5 L MCV 90 MCH 33.2 MCHC 36.9 RDW Std Deviation 40.5 Plt Count 196 Neut % (Auto) 66 Lymph % (Auto) 23 [place] % (Auto) 10 Eos % (Auto) 0 Baso % (Auto) 1 Neut # (Auto) 3.7 Lymph # (Auto) 1.3 [place] # (Auto) 0.6 Eos # (Auto) 0.0 Baso # (Auto) 0.0 Immature Gran # (Auto) 0.01 H Absolute Nucleated RBC 0.00 Immature Gran % 0 Nucleated RBC % 0 PT 10.9 INR 1.0 APTT 27.1 VBG pH 7.43 VBG pCO2 30 L VBG pO2 55 VBG O2 Sat (Yajaira) 88 L VBG Base Excess -3 Sodium 138 Potassium 3.6 Chloride 103 Carbon Dioxide 19.7 L Anion Gap 15 BUN < 5 L Creatinine 0.7 Estim Creat Clear Calc 159.0 eGFR > 60 BUN/Creatinine Ratio 7 L Glucose [address] Glu mg/dL Hemoglobin A1c Calculated Osmolality 276 Lactic Acid 4.7 H* 5.3 H* Calcium 9.3 Corrected Calcium 9.3 Phosphorus Magnesium Total Bilirubin 0.6 AST 45 H ALT 38 Alkaline Phosphatase 67 Ammonia 72 H Troponin I < 0.020 C-Reactive Prot, Quant < 0.5 B-Natriuretic Peptide 28 Total Protein 6.7 Albumin 4.4 Globulin 2.3 Albumin/Globulin Ratio 1.9 Triglycerides Cholesterol LDL Cholesterol, Calc HDL Cholesterol Cholesterol/HDL Ratio Procalcitonin 0.05 TSH Ur Collection Type Clean Catch Urine Color Colorless A Urine Clarity Clear Urine pH 6.5 Ur Specific Isabella 1.005 Urine Protein Negative Urine Glucose (UA) Negative Urine Ketones Negative Urine Blood Negative Urine Nitrite Negative Urine Bilirubin Negative Urine Urobilinogen (Auto) Negative Ur Leukocyte Esterase Negative Urine RBC < 1 Urine WBC 0 Ur Squamous Epith Cells 0 Urine Bacteria None Ur Culture Indicated? Not Indicated Urine Opiates Screen Negative Urine Fentanyl Screen Negative Ur Barbiturates Screen Negative U Amphetamin/Meth Scrn Negative U Benzodiazepines Scrn Negative U Cocaine Metab Screen Negative U Marijuana (THC) Screen Negative Ethyl Alcohol 119.3 H 11/20/24 11/21/24 11/21/24 20:40 05:10 10:27 WBC 6.6 RBC 3.69 L Hgb 12.4 L Hct 34.2 L MCV 93 MCH 33.6 MCHC 36.3 RDW Std Deviation 43.0 Plt Count 172 Neut % (Auto) 57 Lymph % (Auto) 30 [place] % (Auto) 11 Eos % (Auto) 1 Baso % (Auto) 1 Neut # (Auto) 3.7 Lymph # (Auto) 2.0 [place] # (Auto) 0.7 Eos # (Auto) 0.1 Baso # (Auto) 0.1 Immature Gran # (Auto) 0.02 H Absolute Nucleated RBC 0.00 Immature Gran % 0 Nucleated RBC % 0 PT INR APTT VBG pH VBG pCO2 VBG pO2 VBG O2 Sat (Yajaira) VBG Base Excess Sodium 139 Potassium 3.3 L Chloride 105 Carbon Dioxide 21.4 Anion Gap 13 BUN < 5 L Creatinine 0.6 Estim Creat Clear Calc 184.9 eGFR > 60 BUN/Creatinine Ratio 8 L Glucose [address] Glu mg/dL 105 Hemoglobin A1c 5.3 Calculated Osmolality 275 Lactic Acid 4.7 H* 2.6 H Calcium 9.1 Corrected Calcium 9.3 Phosphorus 3.7 Magnesium 1.9 Total Bilirubin 1.2 D AST 32 ALT 28 Alkaline Phosphatase 57 Ammonia Troponin I C-Reactive Prot, Quant B-Natriuretic Peptide Total Protein 5.7 Albumin 3.8 D Globulin 1.9 L Albumin/Globulin Ratio 2.0 Triglycerides 484 H Cholesterol 116 L LDL Cholesterol, Calc TNP HDL Cholesterol 36 L Cholesterol/HDL Ratio 3.2 L Procalcitonin TSH 3.69 Ur Collection Type Urine Color Urine Clarity Urine pH Ur Specific Isabella Urine Protein Urine Glucose (UA) Urine Ketones Urine Blood Urine Nitrite Urine Bilirubin Urine Urobilinogen (Auto) Ur Leukocyte Esterase Urine RBC Urine WBC Ur Squamous Epith Cells Urine Bacteria Ur Culture Indicated? Urine Opiates Screen Urine Fentanyl Screen Ur Barbiturates Screen U Amphetamin/Meth Scrn U Benzodiazepines Scrn U Cocaine Metab Screen U Marijuana (THC) Screen Ethyl Alcohol ABG Interpretation ABG results: 11/20/24 14:08 VBG pH 7.43 VBG pCO2 30 L VBG pO2 55 VBG Base Excess -3 Quality Measures Quality Measures none Assessment & Plan Assessment Current Active Medications: Generic Name Dose Route Start Last Admin Trade Name Freq PRN Reason Stop Dose Admin Acetaminophen 650 mg 11/20/24 18:20 Acetaminophen 325 Mg Tablet PO 12/20/24 18:19 Q6H PRN Fever >100.4 or pain 1-3 Albuterol/Ipratropium 3 ml 11/20/24 18:20 Albuterol/Ipratropium (Duoneb) Rt Margaret 3 Ml Nebu INH 12/20/24 18:19 Q2HR PRN SHORTNESS OF BREATH OR WHEEZE Atorvastatin Calcium 80 mg 11/21/24 21:00 Atorvastatin Calcium 20 Mg Tablet PO 12/21/24 20:59 HS LUIS Diazepam 2.5 mg 11/20/24 18:29 Diazepam Inj 5 Mg/Ml Vial 2 Ml IVP 11/25/24 18:28 On Hold: 11/20/24 20:55 Q2HR PRN CIWA SCORE 8-13 Diazepam 5 mg 11/20/24 18:29 Diazepam Inj 5 Mg/Ml Vial 2 Ml IVP 11/25/24 18:28 Q2HR PRN CIWA SCORE 14-19 Diazepam 10 mg 11/20/24 18:29 11/20/24 19:47 Diazepam Inj 5 Mg/Ml Vial 2 Ml IVP 11/25/24 18:28 10 mg Q2HR PRN Administration CIWA SCORE 20-25 Enoxaparin Sodium 40 mg 11/20/24 21:00 11/20/24 21:00 Enoxaparin Sod Inj 40 Mg/0.4 Ml Syringe SC 12/04/24 20:59 40 mg HS LUIS Administration Thiamine HCl 500 mg/ Sodium 55 mls @ 110 mls/hr 11/21/24 14:00 Chloride IV 12/21/24 13:59 TID LUIS Labetalol HCl 10 mg 11/21/24 09:46 Labetalol Inj 5 Mg/Ml Vial 20 Ml IVP 12/20/24 18:33 Q6HR PRN SBP > 180 Lactulose 20 gm 11/21/24 09:00 11/21/24 08:32 Lactulose Syrup 20 Gm/30 Ml Udc PO 12/21/24 08:59 20 gm BID LUIS Administration Protocol Lorazepam 0.5 mg 11/20/24 18:29 11/21/24 05:35 Lorazepam 0.5 Mg Tablet PO 11/25/24 18:28 0.5 mg Q4HR PRN Administration CIWA Score 2-6 Lorazepam 1 mg 11/20/24 18:29 11/20/24 23:26 Lorazepam 0.5 Mg Tablet PO 11/25/24 18:28 1 mg Q4HR PRN Administration CIWA SCORE 7-11 Lorazepam 2 mg 11/20/24 18:29 Lorazepam 0.5 Mg Tablet PO 11/25/24 18:28 Q4HR PRN CIWA SCORE 12-15 Nicotine 14 mg 11/21/24 10:30 11/21/24 10:40 Nicotine Patch 14 Mg/24 Hr Patch.Td24 TOP 12/21/24 10:29 14 mg QDAY LUIS Administration Ondansetron HCl 4 mg 11/20/24 18:25 Ondansetron Inj 2 Mg/Ml Inj 2 Ml IVP 12/20/24 18:24 Q6H PRN NAUSEA OR VOMITING Protocol Pantoprazole Sodium 40 mg 11/20/24 18:30 11/21/24 08:32 Pantoprazole Inj 40 Mg Vial IVP 12/20/24 18:29 40 mg QDAY LUIS Administration Plan This is a 59 yom with a h/o Alcohol use disorder, schizophrenia on risperidone, internal/external, HLD, who was BIBA on 11/20 for confusion and lethargy, ultimately admitted for acute encephalopathy and acute alcohol withdrawal. #Acute Encephalopathy 03/23 #Acute Alcohol Withdrawl #Hyperammonemia Patient typically drinks 20 beers daily, unsure of last drink, has had multiple attempts at detox but will typically drink again after a detox attempt. Unsure of when last drink was. Has never had a withdrawal seizure in the past. Tremulous on examination, but AxO x3. CIWA 12 in the ED, given 2L LR, and 5mg diazepam. Ammonia was 72, not significantly high to cause a pure hepatic encephalopathy. Transaminases unremarkable except for slight elevation of AST. CIWA now improved to 1. Mentation markedly improved. -Admit med tele -CIWA protocol -Thiamine 500 mg today -Lactulose 20 gm BID -seizure precautions -Passed bedside swallow screen. -PT eval for dispo .recommendations -Continue observation for 1 more day. #Hypertensive Urgency Likely secondary to above. BP 205/119 initially in the ED. Given hydralazine 20 mg, BP improved to 120/92. Anticipate further improvement with treatment of the alcohol withdrawal. Still hypertensive with systolics in the 150s. - Labetolol prn for sbp >190 - Still pending med rec to see if he takes a home antihypertensive. #Lactic Acidosis Likely secondary to the acute alcohol ingestion vs hypovolemia secondary to dehydration. Peaked at 5.3, now down to 3.0 -Trend lactate. - mIVF. #Hypertriglyceridemia TAGs noted to be 484, LDL not calculated due to high number of lipids. Possibly due to risperidone but may have a familial hypertriglyceridemia. -Atorvastatin 80mg -Consider outpatient workup for familial hypertriglyceridemia. #Schizophrenia Stability unclear. Likely restart risperidone once med rec completed. #Tobacco use disorder -Nicotine patch. Health Maintenance: DVT prophylaxis: enoxaparin Diet: hepatic diet [place]ahan: No Lines: PIV CODE STATUS: Full code Disposition: Observation for one more day. Pending PT eval. Patient's plan and care discussed with my attending, Dr. Riggs and my senior Dr Hart. Vinod Liu DO PGY-1 ([facility] Resident) Attending Provider Attestation/Addendum I have discussed and was present for the essential components of the history, physical examination, diagnosis, and treatment plan with the resident. I agree with the patient's care as documented by the resident and amended herein by me. Matt Riggs DO. Although this document has been carefully reviewed, there may still be some phonetic and other typographical errors. These errors are purely grammatical due to imperfections in the software program and should not be construed in any way to compromise the substance of the patient's medical care during this visit.
[2024-11-21 13:34] LABS: Reflex Lactate? Y
[2024-11-21 14:00] LABS: Lactic Acid, 3 HR 3.0 mMol/L (0.4-2.0)
--- NOTE | 2024-11-21 14:37 | PC.SS ---
SS follow up note; SS met with patient at bedside to inform him that 's were recommending SNF. Patient reported he does not need SNF and is capable of ambulating without assistance. Patient attempted to get out of bed to demonstrate to SS that he was able to ambulate. SS informed him he needed to wait for PT to evaluate him first. SS contacted [facility] and he informed SS he would attempt to see patient today, however if not patient would possibly be seen tomorrow.
--- NOTE | 2024-11-21 16:53 | PC.PT ---
Patient is safe to ambulate to the bathroom and in the halls with 1 staff assist. RN made aware.
[2024-11-21] MEDS: ATORVASTATIN CALCIUM 20 MG TABLET 80 MG PO (20:13)
[2024-11-21] MEDS: ENOXAPARIN SOD INJ 40 MG/0.4 ML SYRINGE SC (20:14)
[2024-11-22] VITALS: BP 144/89; PULSE 67; PULSE 68; RESP 16; TEMP 36.9; O2SAT 99
[2024-11-22 04:00] VITALS: BP 145/94; PULSE 60; PULSE 67; RESP 12; TEMP 36.1; O2SAT 98
[2024-11-22 05:40] LABS: Basophils # (Auto) 0.1 Thou/mm3 (0.0-0.2); Basophils % (Auto) 2 % (0-2.5); Eosinophils # (Auto) 0.2 Thou/mm3 (0.0-0.5); Eosinophils % (Auto) 4 % (0-10); Hematocrit 34.7 % (41.0-53.0); Hemoglobin 12.7 g/dL (13.5-16.0); Immature Granulocytes Auto 0.02 Thou/mm3 (0.00-0.00); Lymphocytes # (Auto) 2.3 Thou/mm3 (1.0-4.8); Lymphocytes % (Auto) 43 % (10-50); Mean Corpuscular HGB Conc 36.6 g/dl (31.0-37.0); Mean Corpuscular Hemoglobin 34.0 pg (25.0-35.0); Mean Corpuscular Volume 93 fL (80-100); Monocytes # (Auto) 0.7 Thou/mm3 (0.0-0.8); Monocytes % (Auto) 12 % (0-12); Neutrophils # (Auto) 2.1 Thou/mm3 (1.8-7.7); Neutrophils % (Auto) 39 % (37-80); Nucleated Red Blood Cell # 0.00 Thou/mm3 (0.00-0.00); Nucleated Red Blood Cell % 0 /100 WBC (0); Platelet Count 151 Thou/mm3 (140-440); RDW Standard Deviation 41.9 fL (35.1-43.9); Red Blood Count 3.74 Miln/mm3 (4.50-5.90); White Blood Count 5.4 Thou/mm3 (3.8-10.6)
[2024-11-22 06:00] VITALS: BMI 29.0
[2024-11-22 06:04] LABS: Albumin, Serum 3.9 gm/dL (3.5-5.0); Anion Gap 11 (7-16); BUN/Creatinine Ratio 8 Ratio (12-20); Blood Urea Nitrogen < 5 mg/dL (9-23); Calcium 8.9 mg/dL (8.3-10.6); Calcium (Corrected) 9.0 mg/dL (8.5-10.1); Carbon Dioxide 24.2 mMol/L (20.0-31.0); Chloride 102 mMol/L (98-107); Creatinine (Component) 0.6 mg/dL (0.6-1.3); Estimated Creatinine Clearance 184.9 mL/min (>60); Glucose 112 mg/dL (74-106); Magnesium 2.2 mg/dL (1.6-2.6); Osmolality,Calculated 272 (275-295); Phosphorous 4.6 mg/dL (2.4-5.1); Potassium 3.4 mMol/L (3.4-5.1); Sodium 137 mMol/L (136-145); eGFR > 60 See Note
[2024-11-22 08:00] VITALS: BP 147/100; PULSE 74; PULSE 80; RESP 19; TEMP 36.1; O2SAT 97
[2024-11-22] MEDS: PANTOPRAZOLE 40 MG TABLET PO (08:09)
[2024-11-22] MEDS: POTASSIUM CHLORIDE 10% 20 MEQ/15 ML UDC 40 MEQ PO (08:09)
[2024-11-22] MEDS: NICOTINE PATCH 14 MG/24 HR PATCH.TD24 TOP (08:10)
[2024-11-22] MEDS: THIAMINE INJ 200 MG in SODIUM CHLORIDE 0.9% 50 ML 208 MG IV (09:49)
[2024-11-22 09:53] VITALS: PULSE 74; PULSE 79; RESP 16; O2SAT 97; O2SAT 98
[2024-11-22 10:24] VITALS: BMI 29.0
--- NOTE | 2024-11-22 11:12 | PC.CC ---
Addendum entered by Juan Austin RN 11/22/24 18:45: [facility] accepted and booked, soc 11/25 Original Note: [facility] ref sent out, waiting for responses
[2024-11-22 12:00] VITALS: BP 152/96; PULSE 73; PULSE 85; RESP 16; TEMP 36.2; O2SAT 97
--- NOTE | 2024-11-22 14:24 | PD.RESDS ---
Planned Discharge Date 11/22/24 DS: Providers Provider Date of admission: 11/20/24 18:29 Primary care physician: Young Avalos MD Admitting Provider: Josh Marks MD Attending Provider on Admission: Arden Riggs DO Consults: 11/21/24 14:11 Referral Physical Therapy Routine Comment: Physician Instructions: Instructions: For SNF placement. Lives alone with 85 year old mother Attending Provider on DC: Young Avalos MD Discharging Provider: Young Avalos MD DS: Diagnosis Problem List Completed Was Problem List Reviewed/Reconciled?: Yes Hospital Course Hospital Course Hospital course: Patient is 59 yo male with a h/o Alcohol Use Disorder, schizophrenia on risperidone, HLD, who was BIBA on 11/20 for confusion and lethargy, and admitted for acute encephalopathy secondary to alcohol and going through acute alcohol withdrawals. In the ED patient presented with hypertension BP 205/119 but otherwise stable vitals. On labs he had hyperammonemia 72, and lactic acidosis 4.7. Imaging and EKG were unremarkable. He received 2 L of IV LR, hydralazine IV, and lactulose and given Valium 5 mg p.o. CIWA was 12 and alcohol withdrawal protocol was initiated. Once admitted his hypertension was treated with hydralazine 20mg and labetalol prn which resolved his hypertension. His lactic acidosis resolved with IV fluids. He was found to have hypertriglyceridemia, instructed to follow up outpatient and started on Fibrates. His acute altered mental states resolved and is now safe to discharge and discharged of Librium for alcohol withdraws. Discharge Instructions: Instructions: -Please continue Thiamine (Vitamin) 100 mg orally for alcohol use disorder for three additional days. -Please follow up with your primary doctor for further assistance of alcohol use disorder -continue all medications as prescribed. -Please follow up with your primary care provider and consider work up for familiar hypercholestermia given elevated LDL -Please follow up with your primary care provider within one week of discharge -If your symptoms worsen,please seek immediate medical attention and return to your nearest emergency room -If you do not have a primary care provider, you may follow up at the [facility] at [address], [place] [address], #Acute Encephalopathy 2/2, resolved #Acute Alcohol Withdrawl #Hyperammonemia #Hypertensive Urgency #Lactic Acidosis #Hypertriglyceridemia #Schizophrenia #Tobacco use disorder Patient's plan and care discussed with my attending, Dr. Avalos, and supervising resident Dr. Cherry Winkler MD Internal Medicine PGY-1 - The patient's plan was discussed with attending Dr. Bailey Mayo MD PGY2 Internal Medicine Status at Discharge Functional status at discharge: independent ambulation Time Spent with Patient Time attestation: Total time spent providing and/or coordinating discharge services: Time spent: Greater than 30 minutes Home Health Home Health Referral Orders: 11/22/24 10:29 Home Health Referral Routine Reason For Exam: home PT, safety eval Home-Bound The patient must either because of illness or injury, need the aid of supportive devices such as crutches, canes, wheelchairs, and walkers; the use of special transportation; or the assistance of another person in order to leave their place of residence; OR have a condition such that leaving his or her home is medically contraindicated. In addition, the patient also meets the following criteria: patient is normally unable to leave the home and leaving home requires considerable taxing effort. Addendum to Home Health Certification Practitioner's Certification: I certify that the patient has been under my care in the hospital and the care of attending physician (see below). We had a [id number] encounter on (see date below). My clinical findings indicate that the patient is home bound per the above criteria and the Home Health Services noted in these orders are medically necessary. The primary reason for the [id number] encounter is related to the fact that the patient requires home health services. Date Certifying [id number] Physician Encounter: 11/22/24 Physician's Name who will Assume Oversight for Services: Young Avalos Physician's Phone No.who will Assume Oversight for Service: ENVIRONMENTAL WEB CRAWLER - Community Resources: No PT to Evaluate: Yes PT to evaluate and provide a treatmnet plan to increase patient's mobility and strength. Wound Care: No IV Therapy: No RN Safety Evaluation: Yes RN to evaluate and create a plan of care that will produce positive outcomes. Palliative Treatment: No Palliative treatment and evaluate the need for hospice. Home Health Aide - Personal Care: No Home Health Aide to assist with any ADL's. Exam Vital Signs Temp Pulse Resp BP Pulse Ox O2 Del Method 97.1 F 85 16 152/96 H 97 Room Air 11/22/24 12:00 11/22/24 12:00 11/22/24 12:00 11/22/24 12:00 11/22/24 12:00 11/22/24 12:00 Narrative Exam General: Middle aged patient. Calm. HEENT: Mucosa dry. No oropharyngeal lesions, no tongue fasciculations. Pupils are equal and reactive to light bilaterally Cardiovascular: Normal S1 and S2. Regular rate and rhythm. No murmur appreciated Respiratory: Clear to auscultation bilaterally without wheezes or crackles. Abdomen: Soft, nontender, not distended, Skin: Dry, no rashes or bruising Musculoskeletal: No gross injuries. Able to move all 4 extremities. Non edematous lower extremities. Neuro: Alert and oriented x3. Fingers are no longer tremulous. Psych: Appropriate mood and affect, not currently distracted by [facility]. CIWA: 1 Discharge Plan Plan Patient Disposition: Home w/HOME HEALTH Patient condition on transfer: Stable Care Plan Goals: Instructions: -Please continue Thiamine (Vitamin) 100 mg orally for alcohol use disorder for three additional days. -Please follow up with your primary doctor for further assistance of alcohol use disorder -continue all medications as prescribed. -Please follow up with your primary care provider and consider work up for familiar hypercholestermia given elevated LDL -Please follow up with your primary care provider within one week of discharge -If your symptoms worsen,please seek immediate medical attention and return to your nearest emergency room -If you do not have a primary care provider, you may follow up at the [facility] at [address], [place] [address], Prescriptions/Referrals Prescriptions/Med Rec: New thiamine HCl (vitamin B1) 100 mg capsule 100 mg PO QDAY 3 Days Qty: 3 0RF fenofibrate 150 mg capsule 150 mg PO QDAY 30 Days Qty: 30 0RF chlordiazepoxide HCl 10 mg capsule 10 mg PO BID PRN (Reason: anxiety) 7 Days Qty: 14 0RF sertraline 50 mg tablet 50 mg PO QDAY 30 Days Qty: 30 0RF Continued risperidone 3 mg tablet 3 mg PO QDAY Patient Comments: TAKE 1 TABLET DAILY cyclobenzaprine 5 mg tablet 5 mg PO TID PRN (Reason: Pain (Scale Score 4-6)) Patient Comments: 1 TABLET 3 TIMES A DAY NEEDED FOR PAIN venlafaxine 150 mg tablet extended release 24hr 150 mg PO QDAY Patient Comments: TAKE 1 TABLET BY MOUTH EVERY DAY Discontinued simvastatin 80 mg tablet 80 mg PO QDAY Patient Comments: TAKE 1 TABLET BY MOUTH EVERY DAY AT NIGHT Patient/Caregiver Discharge Instructions Discharge Activity: activity as tolerated Other Discharge Activity Instructions:: Instructions: -Please continue Thiamine (Vitamin) 100 mg orally for alcohol use disorder for three additional days. -Please follow up with your primary doctor for further assistance of alcohol use disorder -continue all medications as prescribed. -Please follow up with your primary care provider and consider work up for familiar hypercholestermia given elevated LDL -Please follow up with your primary care provider within one week of discharge -If your symptoms worsen,please seek immediate medical attention and return to your nearest emergency room -If you do not have a primary care provider, you may follow up at the [facility] at [address] [place] [address] [address], [place] [address], Education Materials: Alcohol Addiction, Alcohol Withdrawal: What to Expect, Addiction Ask These Questions, Addiction: Getting Help, Addiction: Your Treatment Options Print Language: Frisian Stand Alone Forms: Gisele Award Info., Patient Portal Info Letter Discharge Order Discharge Orders: Discharge (Routine); Ordered 11/22/24 Ordered By: Cherry Mayo Quality Discharge Quality Measures VTE prophylaxis MD Attestestation MD Attestation Patient seen and examined with resident physician Dr. Winkler/ Dr. mayo. Note reviewed, agree with findings and recommendations.
[2024-11-22 16:00] VITALS: BP 147/99; PULSE 75; PULSE 90; RESP 20; TEMP 36.3; O2SAT 97
== END 2024-11-22 16:26 | disposition home health service (06) | DRG 775 ==
LOC: SERX 18:05 → SERHOLD 19:10 → S2NX 21:54
PROVIDERS: Nurse Practitioner Family; Admitting Provider Student in an Organized Health Care Education/Training Program; Emergency Provider Family Medicine; PCP Internal Medicine; Visit Provider Student in an Organized Health Care Education/Training Program
DX: F10.239 Alcohol dependence with withdrawal, unspecified (principal); Y90.5 Blood alcohol level of 100-119 mg/100 ml; F20.9 Schizophrenia, unspecified; G93.41 Metabolic encephalopathy; E72.20 Disorder of urea cycle metabolism, unspecified; F10.229 Alcohol dependence with intoxication, unspecified; E78.1 Pure hyperglyceridemia; I16.0 Hypertensive urgency; I10 Essential (primary) hypertension; E87.20 Acidosis, unspecified; E87.6 Hypokalemia; E86.0 Dehydration; F17.200 Nicotine dependence, unspecified, uncomplicated; Z56.0 Unemployment, unspecified; Z88.0 Allergy status to penicillin
CPT/HCPCS: 36415; 70450; 71045; 76705; 80053; 80061; 80069; 80307; 80320; 81001; 82140; 82803; 83036; 83605; 83735; 83880; 84100; 84145; 84443; 84484; 85025; 85610; 85730; 86140; 87040; 87081; 93005; 96361; 96365; 96375; 96376; 97162; 99285; J0360; J1650; J2250; J2470; J3360; J3411; J3480; J7120; A9270; G0480